=== PATIENT | male | born 1980 | race Caucasian/White ===

== ENCOUNTER 2024-01-17 09:42 | Emergency (ER) | payer OTHER ==
[~2024-01-17] VITALS: Ht 182.9 cm; Wt 165.6 kg
[2024-01-17] MEDS ORDERED: LOSARTAN POTAS100 MG PO (09:57)
[2024-01-17] MEDS: ENOXAPARIN SODIUM INJ 100 MG/ML SYR SC STA (13:01)
[2024-01-17 13:08] VITALS: PULSE 72; RESP 16; TEMP 99; O2SAT 97
[2024-01-17] MEDS ORDERED: TESTOSTERO30 MG/1.5 (13:50)
== END 2024-01-17 14:50 | disposition short-term general hospital (02) ==
LOC: FSED 09:45
DX: I87.1 Compression of vein (principal); I82.622 Acute embolism and thrombosis of deep veins of left upper extremity; Z86.711 Personal history of pulmonary embolism
CPT/HCPCS: 80053; 82553; 84484; 85025; 93971 ×2; 96372; 99284; J1650